=== PATIENT | female | born 1945 | race American Indian/Alaskan Native ===

== ENCOUNTER 2017-04-06 07:45 | Day surgery (SDC) | payer MEDICARE ==
[2017-04-04 13:07] VITALS: BMI 33.3
[2017-04-06] MEDS ORDERED: Lactated Ringer's 1,000 ML IV ONE (11:20)
[2017-04-06] MEDS ORDERED: Midazolam 2 MG/2 ML VIAL ONE (11:26)
[2017-04-06] MEDS ORDERED: Propofol 10 mg/ml Inj (20 ML) ONE (11:26)
[2017-04-06] MEDS ORDERED: cefOXitin IV 2 gm in Dextrose 2 GM/50 ML BAG IVPB ONE (11:27)
--- NOTE | 2017-04-06 12:09 | PCM.SURG1 ---
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 Hyperplastic endometrial cavity with a polyp idenfied on the left anterolateral wall of the endometrial cavity. Endocervical canal appears unremarkable. IVF intake-400mls. EBL- 20mls. Urine output-50mls Post-Operative Diagnosis: Saame as preop diagnosis Operation Performed: D and C Hysteroscopy Specimen/Specimens Removed: Endometrial and endocervical curretings. Estimated Blood Loss: EBL {In ML}: 20 Post-Op Condition: Good Date of Surgery/Procedure: 04/06/17 Time of Surgery/Procedure: 12:10
[2017-04-06] MEDS ORDERED: HYDROmorphone 0.5 mg/0.5 ml ISec IVP PRN (12:17)
[2017-04-06] MEDS ORDERED: Lactated Ringer's 1,000 ML IV SCH (12:30)
[2017-04-06 13:25] VITALS: O2SAT 95
--- NOTE | 2017-04-06 13:31 | OP ---
PROCEDURE DATE: PREOPERATIVE DIAGNOSIS: A 71-year-old female with endometrial hyperplasia favoring adenocarcinoma. POSTOPERATIVE DIAGNOSIS: A 71-year-old female with endometrial hyperplasia favoring adenocarcinoma. PROCEDURE: A D&C hysteroscopy. SURGEON: Dr. Cordon. TYPE OF ANESTHESIA: General LMA. ANESTHESIA ADMINISTERED BY: Que Liu MD OPERATING FINDINGS: A 6 weeks' size anteverted uterus with hyperplastic endometrial cavity and a polyp of dimension 1.5 x 1 x 0.5. Polyp identified on the left anterolateral wall of the endometrial cavity. The endocervical canal appear unremarkable. IV FLUID INTAKE: 500 mL. ESTIMATED BLOOD LOSS: 20 mL. URINE OUTPUT: 50 mL of clear urine. COMPLICATIONS: There were no complications. SPECIMEN: Samples taken were endometrial and endocervical curettings. DESCRIPTION OF PROCEDURE: After going through the risks and benefits of the procedure and having all the question from patient answered and a consent obtained. The patient was sent to the OR with IV running and Tejada catheter in place. The patient was put in a supine position on the OR table. After adequate LMA anesthesia, the patient was placed in a dorsal lithotomy position. The patient was then prepped and draped in a usual sterile fashion. The posterior wall of the vagina was depressed with a weighted speculum after the urinary bladder was drained using a straight cath. The anterior wall of the vagina was elevated with an L-shaped retractor to expose the cervix, which was held with a single tooth tenaculum. The uterus was at this point sounded to a depth of about 6 cm. The cervical canal was dilated using Hegar's dilator to dilatation of 8 mm. The hysteroscope was at this point introduced into the uterine cavity and above findings were noted. Pictures were taken and the hysteroscope removed. Sharp curettage was then performed in the endometrial cavity making sure all the surfaces in the endometrial cavity were covered. The samples taken in this fashion were sent for pathological evaluation. The same procedure was done into the cervical canal and some were sent for pathology. When the procedure was concluded, all the instruments were taken from the cervix and vagina and hemostasis was assured. The patient was placed back into supine position and was sent to the recovery room awake and in stable condition. All counts were correct x3. Rajan Cordon MD
[2017-04-06 13:58] VITALS: BP 119/71; PULSE 74; RESP 16; TEMP 97.4
== END 2017-04-06 14:49 | disposition home or self-care (01) ==
LOC: C.SDS 07:45
PROVIDERS: ATTEND Obstetrics & Gynecology
DX: N84.0 Polyp of corpus uteri (principal); N71.9 Inflammatory disease of uterus, unspecified; N85.00 Endometrial hyperplasia, unspecified
CPT/HCPCS: 58558; 88305; J0694; J2250; J2704; J3010; J7120